=== PATIENT | female | born 1955 | race Caucasian/White ===

== ENCOUNTER 2022-08-16 10:27 | Outpatient (CLI) | payer MEDICARE ==
--- NOTE | 2022-08-16 12:20 | XRAY Report ---
PROCEDURE: Cervical Spine 2 View INDICATIONS: CERVICALGIA TECHNIQUE: 5 view(s) of the cervical spine were acquired. COMPARISON: None. FINDINGS: Bones: No fractures or dislocations to the T2 level. The lateral masses of C1 appear intact on the odontoid view. No suspicious bony lesions. Moderate multilevel cervical spondylosis with degenerati ve endplate changes, disc space narrowing, and endplate osteophyte formation. 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 Disc space loss most prominent at C5-6 and C6-7. Soft tissues: No prevertebral soft tissue swelling. IMPRESSION: Cervical spine without acute fracture or malalignment. Moderate multilevel cervical spon dylosis most severe at C5-6 and C6-7. Reviewed by: Ramirez Morrow MD on 08/16/2022 12:19 PM PDT Approved by: Ramirez Morrow MD on 08/16/2022 12:19 PM PDT Station ID: [id number]
== END 2022-08-16 10:28 | disposition home or self-care (01) ==
LOC: DI.N 10:27
PROVIDERS: ATTEND Internal Medicine
DX: M47.812 Spondylosis without myelopathy or radiculopathy, cervical region (principal)

== ENCOUNTER 2023-10-10 08:00 | Outpatient (CLI) | payer MEDICARE ==
[2023-10-10 18:28] LABS: CALCIUM 9.4 mg/dL (8.5-10.3); CREATININE 0.4 mg/dL (0.6-1.3); POTASSIUM 3.6 mmol/L (3.5-4.5)
[2023-10-10 18:31] LABS: CREATININE,URINE 30.4 mg/dL; MICROALBUM/CREATININE RATIO,UR 92.1 ug/mg (<30.0); MICROALBUMIN,URINE 2.8 mg/dL
[2023-10-10 22:08] LABS: ESTIMATED AVERAGE GLUCOSE 295 mg/dL (70-100); HEMOGLOBIN A1c% 11.9 % (4.27-6.07)
== END 2023-10-10 23:59 | disposition home or self-care (01) ==
LOC: LAB.N 08:00
PROVIDERS: ATTEND Physician Assistant Medical
DX: E11.65 Type 2 diabetes mellitus with hyperglycemia (principal); R35.0 Frequency of micturition
CPT/HCPCS: 36415; 80048; 82043; 82570; 83036; 87086

== ENCOUNTER 2023-10-24 11:16 | Outpatient (CLI) | payer MEDICARE ==
[2023-10-24 17:47] LABS: BASOPHILS % (AUTO) 0.7 %; EOSINOPHILS # (AUTO) 0.2 10^3/uL (0.0-0.7); EOSINOPHILS % (AUTO) 2.5 %; HCT - HEMATOCRIT 49.1 % (37.0-47.0); HGB - HEMOGLOBIN 16.2 g/dL (12.0-16.0); LYMPHOCYTES # (AUTO) 2.1 10^3/uL (1.5-3.5); LYMPHOCYTES % (AUTO) 35.1 %; MEAN CORPUSCULAR HEMOGLOBIN 29.6 pg (27.0-31.0); MEAN CORPUSCULAR VOLUME 89.6 fL (81.0-99.0); MEAN PLATELET VOLUME 10.1 fL (7.9-10.8); MONOCYTES # (AUTO) 0.4 10^3/uL (0.0-1.0); MONOCYTES % (AUTO) 6.4 %; NEUTROPHILS # (AUTO) 3.3 10^3/uL (1.5-6.6); NEUTROPHILS % (AUTO) 54.6 %; PLT - PLATELET COUNT 235 10^3/uL (130-450); RED BLOOD COUNT 5.48 10^6/uL (4.20-5.40); RED CELL DISTRIBUTION WIDTH 12.8 % (12.0-15.0)
[2023-10-24 18:00] LABS: ALBUMIN 4.5 g/dL (3.2-5.5); ALBUMIN/GLOBULIN RATIO 1.6 (1.0-2.2); ALKALINE PHOSPHATASE 90 IU/L (42-121); ALT ALANINE AMINOTRANSFERASE 37 IU/L (10-60); AST ASPARTATE AMINOTRANSFERASE 32 IU/L (10-42); BILIRUBIN,TOTAL 0.8 mg/dL (0.2-1.0); BUN - BLOOD UREA NITROGEN 7 mg/dL (6-20); CALCIUM 9.6 mg/dL (8.5-10.3); CARBON DIOXIDE - CO2 24 mmol/L (21-32); CHLORIDE 105 mmol/L (101-111); CHOL/HDL RATIO 5.3 (<4.4); CHOLESTEROL 196 mg/dL; CREATININE 0.6 mg/dL (0.6-1.3); GFR - MDRD 99 (>89); GLUCOSE 168 mg/dL (74-104); HDL CHOLESTEROL 37 mg/dL; LDL CHOLESTEROL,CALCULATED 83 mg/dL; LDL/HDL RATIO 2.2 (<4.4); POTASSIUM 4.3 mmol/L (3.5-4.5); SODIUM 140 mmol/L (135-145); TOTAL PROTEIN 7.3 g/dL (6.4-8.9); TRIGLYCERIDES 379 mg/dL; VLDL CHOLESTEROL 76 mg/dL
[2023-10-24 18:13] LABS: THYROID STIMULATING HORMONE 1.76 uIU/mL (0.34-5.60)
== END 2023-10-24 11:17 | disposition home or self-care (01) ==
LOC: LAB.N 11:16
DX: E11.65 Type 2 diabetes mellitus with hyperglycemia (principal)
CPT/HCPCS: 36415; 80053; 80061; 83721; 84443; 85025